=== PATIENT | male | born 1980 | race Caucasian/White ===

== ENCOUNTER 2016-07-09 12:57 | Emergency (ER) | payer OTHER ==
[~2016-07-09] VITALS: Ht 180.3 cm; Wt 94.3 kg
[2016-07-09] MEDS ORDERED: SERTRALINE HCL50 MG PO (13:27)
[2016-07-09 13:55] LABS: ABSOLUTE NEUTROPHILS 8.3 thou/uL (1.4-8.2); BASOPHILS 0.2 % (0.0-2.0); EOSINOPHILS 0.4 % (0.0-3.0); HEMATOCRIT 46.1 % (42.0-52.0); HEMOGLOBIN 15.6 gm/dL (14.0-18.0); LYMPHOCYTES 16.3 % (24.0-44.0); MCH 29.5 pg (26.0-34.0); MCHC 33.9 g/dL (28.0-37.0); MCV 87.1 fL (80.0-100.0); MONOCYTES 5.5 % (1.0-8.0); PLATELET COUNT 192 thou/uL (150-400); POLYS 77.6 % (36.0-66.0); RDW 12.9 % (10.5-14.5); WBC 10.7 thou/uL (4.0-11.0)
[2016-07-09 13:57] LABS: MANUAL DIFF NO
[2016-07-09 13:59] LABS: CREATININE 0.8 mg/dL (0.7-1.3); POTASSIUM 3.9 mmol/L (3.5-5.1)
[2016-07-09 14:04] LABS: ALBUMIN 4.3 g/dL (3.4-5.0); TOTAL BILIRUBIN 0.5 mg/dL (<0.1-1.0); TOTAL PROTEIN 7.5 g/dL (6.4-8.2)
[2016-07-09 14:50] VITALS: BP 118/70
== END 2016-07-09 14:52 | disposition home or self-care (01) ==
LOC: ER 12:57
PROVIDERS: Emergency Medicine
DX: F41.9 Anxiety disorder, unspecified (principal); F32.9 Major depressive disorder, single episode, unspecified; F17.210 Nicotine dependence, cigarettes, uncomplicated